=== PATIENT | male | born 1985 | race Caucasian/White ===

== ENCOUNTER 2016-10-10 10:47 | Emergency (ER) | payer SELFPAY ==
[~2016-10-10 10:47] MED LIST: HYDROCODON-ACE1 EAC9 PO; MOBIC PO; NAPROSYN500 MG PO; NO MEDICATIONS; TYLENOL #3 PO; VOLTAREN75 MG PO
[2016-10-10] MEDS ORDERED: B/P MED (10:51)
== END 2016-10-10 12:23 | disposition home or self-care (01) ==
LOC: SED 10:47
DX: T15.01XA Foreign body in cornea, right eye, initial encounter (principal); I10 Essential (primary) hypertension; F17.210 Nicotine dependence, cigarettes, uncomplicated; Z88.0 Allergy status to penicillin; X58.XXXA Exposure to other specified factors, initial encounter
CPT/HCPCS: 99283